=== PATIENT | male | born 1985 | race Caucasian/White ===

== ENCOUNTER → 2021-03-30 13:59 | Outpatient (BNVA) | payer OTHER, SELFPAY | PROVIDERS: PCP Registered Nurse; Visit Provider Registered Nurse | DX: J02.9 Acute pharyngitis, unspecified (principal); Z12.5 Encounter for screening for malignant neoplasm of prostate | CPT/HCPCS: 85025; 86308; 87070; G0103 ==

== ENCOUNTER → 2022-05-18 16:26 | Outpatient (BNVA) | payer OTHER, BC, MEDICAID, SELFPAY | PROVIDERS: PCP Registered Nurse; Visit Provider Nurse Practitioner Family | DX: R25.3 Fasciculation (principal) | CPT/HCPCS: 80053; 85025 ==

== ENCOUNTER 2022-09-24 11:32 | Outpatient (CLI) | payer OTHER, BC, MEDICAID, SELFPAY ==
[2022-09-24 12:49] VITALS: BMI 28.5
--- NOTE | 2022-09-24 12:50 | ECG_ITS ---
[facility] Test Date: 2022-09-24 Pat Name: Israel Saldaña Department: Room: Gender: Male [employer]: Tavia PenningtonShane : 1985 Requested By: Karol Celeste Order Number: [id number] Aida MD: Roxann Swenson M.D. Interpretive Statements NAME OF STUDY: TREADMILL STRESS TEST INDICATION: Chest Pain Baseline blood pressure of 132/78 mm Hg, heart rate 68 beats per minute and oxygen saturation 97%. EKG showed sinus rhythm, normal axis with normal ST and T's. The patient exercised for 13 minutes 37 seconds on a standard Tyshawn protocol. Patient attained a maximum heart rate of 195 beats per minute(105% of the maximum predicted heart rate) with a blood pressure at the peak exercise of 176/74 mm Hg and saturation of 98%. The EKG at the peak exercise revealed sinus tachycardia with no significant ST-T wave changes. Patient did not have any chest pain or any significant arrhythmis with the exercise During the recovery phase, there were no new changes. Blood pressure at the end of the recovery phase was 136/84 mm Hg with a heart rate of 96 beats per minute present saturation of 96%. CONCLUSION: 1. Normal EKG response to treadmill exercise. 2. No exercise-induced chest pain or cardiac arrhythmia. 3. Excellent exercise tolerance, attained a maximum of 17.2 METs. 4. Baseline normal blood pressure with normal response to exercise. Electronically Signed On 09-26-2022 11:46:02 CDT by Roxann Swenson M.D. [email or web address]
[2022-09-24 13:30] VITALS: BP 136/84; PULSE 97
== END 2022-09-24 11:33 | disposition home or self-care (01) ==
PROVIDERS: PCP Registered Nurse; Visit Provider Registered Nurse
DX: R07.9 Chest pain, unspecified (principal)
CPT/HCPCS: 93017

== ENCOUNTER 2023-04-07 06:00 | Outpatient (RCR) | payer OTHER, SELFPAY | END 2023-05-05 23:59 | disposition home or self-care (01) | LOC: WPT 06:00 | PROVIDERS: Visit Provider Orthopaedic Surgery | DX: Z47.89 Encounter for other orthopedic aftercare (principal) | CPT/HCPCS: 97110; 97112; 97530 ==

== ENCOUNTER → 2023-12-16 08:13 | Outpatient (BNVA) | payer OTHER, SELFPAY | PROVIDERS: PCP Registered Nurse; Visit Provider Student in an Organized Health Care Education/Training Program | DX: S46.211A Strain of muscle, fascia and tendon of other parts of biceps, right arm, initial encounter; X58.XXXA Exposure to other specified factors, initial encounter | CPT/HCPCS: 73080 ==

== ENCOUNTER 2023-12-23 15:29 | Outpatient (CLI) | payer OTHER, SELFPAY ==
--- NOTE | 2023-12-23 16:00 | MRR_ITS ---
PROCEDURE INFORMATION: Exam: MR Right Upper Extremity Joint Without Contrast; Elbow Exam date and time: 12/23/2023 4:28 PM Age: 38 years old Clinical indication: Injury or trauma; Sprain or strain; Elbow; Right; Additional info: S46.219a - strain of muscle, fascia and tendon of other p. . . TECHNIQUE: Imaging protocol: Magnetic resonance imaging of the right upper extremity without contrast. Exam focused on the elbow. COMPARISON: CR XR elbow RT min 3V* [id number] 12/16/2023 8:17 AM FINDINGS: Bones/joints: Trace elbow joint fluid. Ulnar (medial) collateral ligament: The ulnar collateral ligament is intact. Radial collateral ligament of the elbow: The radial collateral ligament is intact. The lateral ulnar collateral ligament is intact. Annular ligament of the radius: The annular ligament is not well assessed. Tendon of the biceps brachii: Complete tear of the distal biceps tendon with approximately 7 cm retraction. There are blood products and fluid along the expected course of the biceps tendon. Tendon of the brachialis: The brachialis tendon is intact. Triceps tendon: The triceps tendon is intact. Common flexor tendon: The common flexor tendon is overall intact. Common extensor tendon: Mild tendinosis of the common extensor tendon. Nerves: The ulnar nerve in the cubital tunnel is grossly unremarkable. Soft tissues: There is ventral subcutaneous edema. MR/MR elbow RT wo con* [id number] IMPRESSION: 1. Complete tear of the distal biceps tendon with approximately 7 cm retraction. There are blood products and fluid along the expected course of the biceps tendon. 2. Mild tendinosis of the common extensor tendon.
== END 2023-12-23 15:30 | disposition home or self-care (01) ==
LOC: RAD 15:32
PROVIDERS: PCP Registered Nurse; Visit Provider Student in an Organized Health Care Education/Training Program
DX: S46.211A Strain of muscle, fascia and tendon of other parts of biceps, right arm, initial encounter (principal); X58.XXXA Exposure to other specified factors, initial encounter
CPT/HCPCS: 73221

== ENCOUNTER → 2023-12-27 11:24 | Outpatient (BNVA) | payer OTHER, SELFPAY | PROVIDERS: PCP Registered Nurse; Visit Provider Orthopaedic Surgery | DX: Z01.818 Encounter for other preprocedural examination (principal) | CPT/HCPCS: 36415; 80053; 81001; 85025 ==

== ENCOUNTER 2023-12-28 08:17 | Day surgery (SDC) | payer OTHER, SELFPAY ==
[2023-12-28] VITALS (13 sets, daily range): BP systolic 123–153; BP diastolic 84–96; PULSE 67–85; RESP 16–20; TEMP 36.1–36.4; O2SAT 92–98; BMI 29.1
--- NOTE | 2023-12-28 09:35 | P.ANESASSM_ITS ---
Pre-Anesthetic Assessment Height/Weight: Height 1.83 m Weight 97.522 kg Temp Pulse Resp BP Pulse Ox O2 Del Method 97.1 F L 73 18 123/87 96 Room Air 12/28/23 08:37 12/28/23 08:37 12/28/23 08:37 12/28/23 08:37 12/28/23 08:37 12/28/23 08:37 Preop Diagnosis: Right distal bicep tendon rupture Operation Date: 12/28/23 10:20 Proposed Procedures p Bicep Tenodesis Tendon Repair Bicep(Right) - Koby Fontanez, Familial anesthetic complications: None Was Beta Didier taken within 24 hours: N/A Was Clonidine taken within 24 hours: N/A Last intake: Intake Last Liquid Date 12/28/23 Last Liquid Time 03:30 Last Solid Date 12/27/23 Last Solid Time 22:45 Social Tobacco and No alcohol Exam alert, oriented x 3, clear to auscultation bilaterally and regular rate & rhythm Airway Mallampati: Class II Anesthetic Plan ASA status: 1 Anesthesia: General Risk of > 500 ml blood loss (7ml/kg in children): No Medications/Allergies Home Medications Medication Instructions Recorded Confirmed Last Taken Type No Known Home Medications 12/16/23 12/27/23 Unknown History Allergies Allergy/AdvReac Type Severity Reaction Status Date / Time No Known Allergies Allergy Verified 12/27/23 15:07 [facility] Anesthesia Medical History Smoker Family History Other Arrhythmia Social History Smoking and tobacco/nicotine status: unknown if used tobacco/nicotine Alcohol intake: never Substance/Drug Use: never Adopted: No Caregiver/support person: No Lives independently: No Household members: spouse and children Current occupational status: employed Sexually active: Yes Do you think of yourself as: Straight/Heterosexual Current gender identity: Male Data Anesthesia Cardiac Studies: No Data to Display
[2023-12-28] MEDS: sodium chloride 0.9% 1,000 ML 30 ML IV (10:24)
--- NOTE | 2023-12-28 10:27 | W.PM.OPSUD ---
Surgery/Procedure H&P Update DATE OF PROCEDURE: December 28, 2023 DATE H&P PERFORMED: 12/27/23 H&P UPDATE INFORMATION: I have reviewed H&P completed within last 30 days, I have examined patient prior to procedure and No changes to prior documentation PREOP DIAGNOSIS: Right distal bicep tendon rupture PLANNED PROCEDURE: Operation Date: 12/28/23 10:20 Proposed Procedures p Bicep Tenodesis Tendon Repair Bicep(Right) - Koby Fontanez DO
[2023-12-28] MEDS: ceFAZolin 2,000 mg SDV 2000 MG IVP (10:42)
--- NOTE | 2023-12-28 13:13 | PM.OP ---
Operative Report Date of procedure: December 28, 2023 Pre-op diagnosis: Right distal bicep rupture Post-op diagnosis: same Procedure done: Right distal biceps repair Surgeon: Koby Fontanez DO Estimated blood loss (mL): 50 Procedure: Right distal biceps repair Patient brought the op suite after an Gonasi was placed in supine position. All areas appear well-padded patient's prepped draped normal sterile fashion. Skin incision was made over the distal biceps and insertion site over the radius. Transverse incision across the antecubital fossa and incision proximally up to where the bicep tendon had retracted. Skin incision made using knife Bovie is used to coagulate bleeders dressings may down met scissors the bicep tendon was identified and its track and scar down significantly good distal bicep was freed up. The tract was followed down to the biceps tendon insertion. There is significant scar tissue. Dissection was made out and Hohmann retractors were placed on the medial lateral side of the radial bicipital tuberosity. The wire was placed with a arm supinated or facilitate placing the wire in at the insertion site. There is tenderness brought to the bicep tendon. A distal part of the tendon was cleaned and whipstitch was used to live stitch was used to suture the distal tendon. The suture button was then attached to the tendon support tendon sutures. The near cortex was drilled. The button was then inserted into the radial bone and flipped over on the contralateral cortex. The tendon was then tightened down due to all the scarring the arm was had to be held at 9 degrees in order to facilitate keeping the tendon inside of the whole inside of the radius. The suture was then sutured down to the tendon back along itself. If the screw was attempted be placed but was able to get one in. Since the had to be held at 90 degrees the skin incision was undermined going to facilitate closing the wound. Wound was then closed with 2-0 Vicryl and january. Sterile dressings were applied and then a posterior splint was applied with the arm at 90 degrees. Patient was then transferred to the PACU in stable condition.
[2023-12-28] MEDS: fentaNYL 50 mcg/mL INJ 2mL IVP (13:16)
--- NOTE | 2023-12-28 13:40 | SUR.PHASEII ---
ROM ,SENSATION, AND CAP REFILL TO FINGERS OF RIGHT FINGERS.
--- NOTE | 2023-12-28 14:00 | SUR.PHASEII ---
13:55 RIGHT SUPRA CLAVICULAR NERVE BLOCK PERFORMED BY DOCTOR Knutson USING 0.5% ROPIVACAINE 30ml WITH DECADRON 4mg. PATIENT TOLERATED PROCEDURE WELL. PT ON LVN SHOWING NSR AND O2 VIA NASAL CANNULA.
--- NOTE | 2023-12-28 14:03 | ANES.PROC ---
Anesthesia Procedures Procedure/Date: 12/28/23 Nerve Block ^: Nerve Block 1: Main Anesthesia: general anesthesia Time Out Performed: Yes Consent: requested by attending/covering physician, from patient, from other, risks and benefits reviewed and patient agrees to proceed Nerve block location: supraclavicular (R) Anesthesia monitors applied: pulse oximetry, EKG, BP cuff and oxygen Nerve block position: semi sitting Anesthetic Used: ropivicaine 0.5% (30 ml) and with decadron (4 mg) Ultrasound used to: recognize landmarks, visualize and ID brachial plexus and in supraclavicular region Nerve Stimulator Used?: No Interscalene/Femoral BLK: 4 stimuplex 21 g needle used for position and inplane approach, visualize local anesthetic spread and no vascular puncture identified Injection: neg aspiration of heme Complications: none
--- NOTE | 2023-12-28 14:18 | XR_ITS ---
WS: [id number] Exam: XR forearm RT 2V [id number] Date/Time of Exam: 12/28/2023 2:18 PM Reason For Exam: or pic, bicep tendon repair A single anterior posterior C arm intraoperative image of the RIGHT elbow is submitted. The image was obtained for intraoperative purposes.
--- NOTE | 2023-12-28 14:30 | SUR.PHASEII ---
RX called in to [facility]. Zofran 4mg po q6h prn #[address] Fontanez.
--- NOTE | 2023-12-28 15:05 | ANE.PACU2 ---
Inpatient post-anesthesia follow up: Airway intact: Yes Vital signs: Temperature 97.1 F Pulse Rate 73 Respiratory Rate 18 Blood Pressure 136/87 Pulse Oximetry 97 Oxygen Delivery Me thod Room Air Oxygen Flow Rate 6 Fraction of Inspir ed Oxygen Hydration adequate: Yes Nausea and vomiting: No Pain level: 1 Mental status: Baseline
== END 2023-12-28 15:07 | disposition home or self-care (01) ==
PROVIDERS: PCP Registered Nurse; Visit Provider Orthopaedic Surgery
PROC: (CPT 23430; principal; 2023-12-28 10:10)
DX: S46.211A Strain of muscle, fascia and tendon of other parts of biceps, right arm, initial encounter (principal); X58.XXXA Exposure to other specified factors, initial encounter
CPT/HCPCS: 24341; 73090; 76000; C1713; J0690; J1100; J1171; J2250; J2405; J2704; J2795; J3010; J3490; J7030

== ENCOUNTER 2024-01-03 11:56 | Outpatient (CLI) | payer OTHER, SELFPAY | END 2024-01-03 11:57 | disposition home or self-care (01) | LOC: SPT 11:56 | PROVIDERS: PCP Registered Nurse; Visit Provider Orthopaedic Surgery | DX: Z47.89 Encounter for other orthopedic aftercare (principal) | CPT/HCPCS: L3761 ==

== ENCOUNTER 2024-01-19 11:31 | Outpatient (CLI) | payer OTHER, SELFPAY ==
--- NOTE | 2024-01-19 12:15 | MR_ITS ---
WS: [id number] MRI RIGHT ELBOW WITHOUT CONTRAST. COMPARISON: 12/23/2023 Multiplanar, multisequence imaging is performed without contrast. Status post repair of the biceps tendon. Biceps tendon is identified at the radial tuberosity in good position. There is edema and soft tissue swelling along the course of the biceps tendon to the bicep s muscle. There is no focal fluid collection. The tendon itself appears to be intact. There is edema in the soft tissues. MR/MR elbow RT wo con* [id number] IMPRESSION: 1. No abscess identified at the RIGHT elbow. If there are persistent concernin g symptoms for abscess consider reevaluation of the elbow with and without cont rast. 2. Biceps tendon repair appears intact.
== END 2024-01-19 11:32 | disposition home or self-care (01) ==
LOC: RAD 11:32
PROVIDERS: PCP Registered Nurse; Visit Provider Orthopaedic Surgery
DX: M25.421 Effusion, right elbow (principal); Z98.890 Other specified postprocedural states
CPT/HCPCS: 73221

== ENCOUNTER 2024-02-14 06:00 | Outpatient (RCR) | payer OTHER, SELFPAY | END 2024-03-06 23:59 | disposition home or self-care (01) | LOC: WPT 06:00 | PROVIDERS: Visit Provider Orthopaedic Surgery | DX: Z98.890 Other specified postprocedural states (principal) | CPT/HCPCS: 97110; 97112; 97140; 97161; 97530 ==

== ENCOUNTER 2024-03-07 06:00 | Outpatient (RCR) | payer OTHER, SELFPAY | END 2024-04-06 23:59 | disposition home or self-care (01) | LOC: WPT 06:00 | PROVIDERS: Visit Provider Orthopaedic Surgery | DX: Z47.89 Encounter for other orthopedic aftercare (principal) | CPT/HCPCS: 97110; 97112; 97140; 97530 ==

== ENCOUNTER 2024-04-07 06:30 | Outpatient (RCR) | payer OTHER, SELFPAY | END 2024-05-04 23:55 | disposition home or self-care (01) | LOC: WPT 06:30 | PROVIDERS: Family Provider Nurse Practitioner Family; Visit Provider Orthopaedic Surgery | DX: Z47.89 Encounter for other orthopedic aftercare (principal) | CPT/HCPCS: 97110; 97112; 97530 ==

== ENCOUNTER → 2024-04-30 15:41 | Outpatient (BNVA) | payer OTHER, SELFPAY | PROVIDERS: Family Provider Nurse Practitioner Family; Visit Provider Nurse Practitioner Family | DX: J02.9 Acute pharyngitis, unspecified (principal) | CPT/HCPCS: 87880 ==

== ENCOUNTER 2024-05-05 06:30 | Outpatient (RCR) | payer OTHER, SELFPAY | END 2024-06-04 23:59 | disposition home or self-care (01) | LOC: WPT 06:30 | PROVIDERS: Family Provider Nurse Practitioner Family; Visit Provider Orthopaedic Surgery | DX: Z47.89 Encounter for other orthopedic aftercare (principal) | CPT/HCPCS: 97110 ==